=== PATIENT | male | born 1955 | race Caucasian/White ===

== ENCOUNTER 2023-05-01 07:12 | Emergency (ER) | payer OTHER, MEDICARE, SELFPAY ==
[2023-05-01 07:12] VITALS: BP 217/114; PULSE 97; RESP 18; TEMP 36.3; O2SAT 98; BMI 29.2
--- NOTE | 2023-05-01 07:58 | CT_ITS ---
STUDY: CT CERVICAL SPINE WITHOUT CONTRAST REASON FOR EXAM: Male, 67 years old. Neck pain RADIATION DOSAGE (If Supplied By Facility): CTDIvol = ( 23.03 ) mGy, DLP = ( 507.58 ) mGycm TECHNIQUE: High resolution transaxial imaging was performed without contrast material. Sagittal and coronal images were reconstructed. Individualized dose optimization techniques were used for this CT. COMPARISON: None FINDINGS: Normal craniovertebral junction. There are degenerative changes of the anterior atlantoaxial articulation. Normal odontoid process. Normal cervical lordosis. Normal vertebral bodies and posterior osseous elements. There is no acute fracture. There is chronic avulsion fracture of the posterior spinous process of C7. C2-3: Normal endplates. Normal disc height and morphology. Facet spurring on the right. Normal central canal and intervertebral neuroforamina. C3-4: Disc bulge and spurring. Mild facet spurring. Mild canal stenosis. Neural foramina are patent. C4-5: Mild spurring. Facet spurring on the right more than the left. No canal stenosis. Neural foramina are patent. C5-6: Disc bulge. Facet spurring on the right. No canal stenosis. Neural foramina are patent. C6-7: Disc space narrowing. Disc bulge and spurring asymmetric to the right. No canal stenosis. Right greater than left foraminal narrowing C7-T1: Normal endplates. Normal disc height and morphology. Normal central canal and intervertebral neuroforamina. Normal visualized soft tissue structures. There is posterior ligamentous calcification. CT/Spine Cervical without Contras IMPRESSION: Multilevel degenerative changes, as described above. Electronically Signed: Raulito Morejon MD at 9:01 EDT ,
--- NOTE | 2023-05-01 07:58 | CT_ITS ---
STUDY: CT BRAIN WITHOUT CONTRAST REASON FOR EXAM: Male, 67 years old. Head trauma RADIATION DOSAGE (If Supplied By Facility): CTDIvol = ( 44.99 ) mGy, DLP = ( 846.73 ) mGycm TECHNIQUE: Transaxial CT imaging of the brain was performed without administration of intravenous contrast material. Individualized dose optimization techniques were used for this CT. COMPARISON: No relevant priors. FINDINGS: Normal soft tissue structures. Normal calvarium. There is mild cerebral atrophy with widening of the extra-axial spaces and ventricular dilatation. Normal white matter tracts of the cerebral hemispheres. Normal basal ganglia and thalami. Normal brainstem. Normal cerebellum. There is no intracranial hemorrhage. There are no findings of an acute ischemic infarction. Normal visualized paranasal sinuses. CT/Brain/Head without Contrast IMPRESSION: Chronic involutional changes of the brain. Electronically Signed: Raulito Morejon MD at 8:56 EDT ,
--- NOTE | 2023-05-01 08:05 | EDS_ITS ---
HPI <Dr. Travis Blum DO - Last Filed: 05/01/23 10:17> History of Present Illness Chief Complaint: Laceration Narrative Narrative: 67-year-old male presenting with laceration to the left eyebrow. He states this occurred about 930 last night. Patient states he was at work and tripped and fell into a door sustaining laceration. Bleeding was well controlled. Last tetanus unknown. Patient later developed a headache on the right side of his head he points to just anterior to his right ear. He also states that he has pain across his neck and into bilateral shoulders. He does not complain of any numbness or tingling. Patient denies LOC. He is not on any blood thinners. PFSH <Dr. Travis Blum DO - Last Filed: 05/01/23 10:17> PFSH Home Medications azithromycin 250 mg tablet 250 mg PO QDAY #12 tabs 09/14/17 [Rx Last Taken Unknown] lisinopril 10 mg-hydrochlorothiazide 12.5 mg tablet 1 tab PO QDAY 09/14/17 [History Last Taken Unknown] mirtazapine 15 mg tablet (Remeron) 15 mg PO QHS 09/14/17 [History Last Taken Unknown] omeprazole magnesium 2.5 mg oral suspension,delayed release (Prilosec) 10 mg PO QDAY 09/14/17 [History Last Taken Unknown] Allergy/AdvReac Type Severity Reaction Status Date / Time Penicillins Allergy Other Verified 04/06/22 14:27 Sulfa (Sulfonamide Allergy Other Verified 04/06/22 14:27 Antibiotics) Social History Smoking Status: Former smoker ROS <Dr. Travis Blum DO - Last Filed: 05/01/23 10:17> ROS ED Review of Systems ROS Unobtainable: Denies due to encephalopathy Constitutional Constitutional ED: Denies chills or fever(s) Eyes Eyes: Denies blurry vision or change in vision ENT ENT ED: Denies rhinorrhea Cardiovascular Cardiovascular: Denies chest pain or palpitations Respiratory/Chest Respiratory/Chest: Denies cough or dyspnea Gastrointestinal Gastrointestinal: Denies abdominal pain, nausea or vomiting Genitourinary Genitourinary ED: Denies dysuria or hematuria Musculoskeletal Musculoskeletal: Reports neck pain Integumentary Reports other Details: Left eyebrow laceration Neurologic Neurologic: Reports headache(s) EXAM <Dr. Travis Blum DO - Last Filed: 05/01/23 10:17> Physical Exam Const Vital Signs: 05/01/23 07:12 Temperature 97.4 F L Temperature Source Temporal Pulse Rate 97 Respiratory Rate 18 Blood Pressure 217/114 H Blood Pressure Mean 148 Pulse Ox 98 Oxygen Delivery Method Room Air Positive well nourished General Appearance ED: NAD YAMIL UMANABEBETO Narrative: 2 cm left eyebrow laceration with fairly well approximated wound margins Eyes PERRL and EOMs intact bilaterally Neck full ROM Resp normal respiratory effort Auscultation: Negative for rales, rhonchi or wheezes Back/Spine Back/Spine Narrative: Tenderness to palpation of cervical spine midline without form or step-off. This is proximal level of C6-7. Extremity normal to inspection and full ROM Neuro oriented x3 and CN's II-XII intact bilaterally <DEBBIE Caputo - Last Filed: 05/01/23 10:11> Physical Exam Const Vital Signs: 05/01/23 07:12 Temperature 97.4 F L Temperature Source Temporal Pulse Rate 97 Respiratory Rate 18 Blood Pressure 217/114 H Blood Pressure Mean 148 Pulse Ox 98 Oxygen Delivery Method Room Air MDM <Dr. Travis Blum, - Last Filed: 05/01/23 10:17> [facility] MDM Narrative Medical decision making narrative: Procedure note: 2 cm laceration left eyebrow. I anesthetized with 1% lidocaine and thoroughly irrigated the area. Wound explored. Was prepped and draped in sterile condition and closed with 4 simple erupted sutures of 6-0 Ethilon with good approximation. Patient tolerated procedure well. Diffuse CT brain and cervical spine given his headache and neck pain. Across his back. CT brain and cervical spine were negative. This was Worker's Comp. Appropriate paperwork was filled out. Discharge instructions were printed as well as work restrictions however the patient left without these. Impression: 1. Mechanical fall 2. 2 cm left eyebrow laceration 3. Cervical strain 4. Closed head injury Radiography Diagnostic Testing: Clinical Impression(s) from Imaging Studies Brain CT 05/01/23 07:58 IMPRESSION: Chronic involutional changes of the brain. Electronically Signed: Raulito Morejno MD at 8:56 EDT , Cervical Spine CT 05/01/23 07:58 IMPRESSION: Multilevel degenerative changes, as described above. Electronically Signed: Raulito Morejon MD at 9:01 EDT Reading Location ID and State: [facility] / [place] , Service support , <DEBBIE Caputo - Last Filed: 05/01/23 10:11> [facility] MDM Narrative Medical decision making narrative: Procedure note: 2 cm laceration left eyebrow. I anesthetized with 1% lidocaine and thoroughly irrigated the area. Wound explored. Was prepped and draped in sterile condition and closed with 4 simple erupted sutures of 6-0 Ethilon with good approximation. Radiography Diagnostic Testing: Clinical Impression(s) from Imaging Studies Brain CT 05/01/23 07:58 IMPRESSION: Chronic involutional changes of the brain. Electronically Signed: Raulito Morejon MD at 8:56 EDT Reading Location ID and State: [address] [place] [address] , Service support , Cervical Spine CT 05/01/23 07:58 IMPRESSION: Multilevel degenerative changes, as described above. Electronically Signed: Raulito Morejon MD at 9:01 EDT Reading Location ID and State: [facility] / [place] , Service support , Discharge Plan Triage Chief Complaint: Laceration ED Provider: Travis Blum Dx/Rx/DC Orders Instructions: ED Head Injury (Adult), ED FACIAL LACERATION Suture Tape, ED Neck Sprain or Strain Prescriptions: No Action lisinopril-hydrochlorothiazide 10-12.5 mg tablet 1 tab PO QDAY mirtazapine [Remeron] 15 mg tablet 15 mg PO QHS omeprazole magnesium [Prilosec] 2.5 mg susp,delayed release for recon 10 mg PO QDAY azithromycin 250 mg tablet 250 mg PO QDAY Qty: 12 0RF Rx Instructions: 2 tablets today, then 1 tablet daily on days 2 through 11 Primary Care Provider: Radha Cohen Referrals: [facility] [Non-Staff] - 5 Days for suture removal Radha Cohen MD [[facility]] - Disposition Disposition: Home, Self Care
[2023-05-01] MEDS: Acetaminophen 500 MG Tablet 1000 MG PO (09:16)
[2023-05-01] MEDS: Diphth,Pertuss(Acell),Tet Vac 0.5 ML Vial IM (09:16)
[2023-05-01] MEDS: Lidocaine 1% /Epi 1:100 (20ml) 20 ML Vial 30 ML INFILT (09:17)
[2023-05-01 10:25] VITALS: BP 189/118
== END 2023-05-01 10:26 | disposition home or self-care (01) ==
PROVIDERS: Emergency Provider Student in an Organized Health Care Education/Training Program; PCP Internal Medicine; Visit Provider Student in an Organized Health Care Education/Training Program
DX: S01.112A Laceration without foreign body of left eyelid and periocular area, initial encounter (principal); S16.1XXA Strain of muscle, fascia and tendon at neck level, initial encounter; W01.198A Fall on same level from slipping, tripping and stumbling with subsequent striking against other object, initial encounter; Y99.0 Civilian activity done for income or pay; Z87.891 Personal history of nicotine dependence; Z23 Encounter for immunization
CPT/HCPCS: 12011; 70450; 72125; 90471; 90715; 99282